=== PATIENT | female | born 1980 | race Caucasian/White ===

== ENCOUNTER 2017-07-22 16:05 | Emergency (ER) | payer OTHER ==
[~2017-07-22] VITALS: Ht 160 cm; Wt 97.1 kg
[2017-07-22 16:17] VITALS: BP 153/103
[2017-07-22] MEDS ORDERED: BACITRAYCIN PLU28 GM TOP (16:36)
== END 2017-07-22 16:44 | disposition home or self-care (01) ==
LOC: M.ERS 16:05
DX: S30.860D Insect bite (nonvenomous) of lower back and pelvis, subsequent encounter (principal); W57.XXXD Bitten or stung by nonvenomous insect and other nonvenomous arthropods, subsequent encounter